=== PATIENT | female | born 1985 | race Caucasian/White ===

== ENCOUNTER 2016-09-25 19:31 | Emergency (ER) | payer OTHER ==
[~2016-09-25] VITALS: Ht 165.1 cm; Wt 106.2 kg
[2016-09-25] MEDS ORDERED: IBUP600T26 PO (22:25)
--- NOTE | 2016-09-25 22:40 | REPUSA ---
CLINICAL HISTORY: Pain. COMMENTS: Real time sonography with duplex doppler of the right lower extremity was performed with attention to the major deep venous structures. Evaluation reveals the right common femoral, superficial femoral and popliteal veins to be completely compressible without intraluminal thrombus. There is normal spontaneous phasic flow and augmentation . The greater saphenous/common femoral vein junction is patent. IMPRESSION: No evidence of DVT in right lower extremity. Thank you for your kind referral of this patient.
[2016-09-25 22:52] VITALS: BP 161/86
--- NOTE | 2016-09-26 19:32 | ECGEPIP ---
Stationary ECG Study [facility] - ED Test Date: 2016-09-25 Pat Name: SANDY BULLOCK Department: Room: - Gender: F [employer]: TIFF : 1985 Requested By: KRANTHI Glynn Order Number: [id number] Reading MD: Raza Pizano Measurements Intervals [place] Rate: 83 P: 8 [place]: 173 QRS: 46 QRSD: 110 T: 37 QT: 381 QTc: 450 Interpretive Statements SINUS RHYTHM INCOMPLETE RIGHT BUNDLE BRANCH BLOCK NO OLD ECG FOR COMPARISON Electronically Signed On 09-26-2016 19:32:27 EDT by Raza Pizano
== END 2016-09-25 22:57 | disposition home or self-care (01) ==
LOC: M ED 21:25
DX: S86.111A Strain of other muscle(s) and tendon(s) of posterior muscle group at lower leg level, right leg, initial encounter (principal); X58.XXXA Exposure to other specified factors, initial encounter; Y92.9 Unspecified place or not applicable; Y93.9 Activity, unspecified; Y99.9 Unspecified external cause status; F17.200 Nicotine dependence, unspecified, uncomplicated